=== PATIENT | male | born 1995 | race African-American/Black ===

== ENCOUNTER 2020-06-14 11:46 | Emergency (ER) | payer SELFPAY ==
--- NOTE | ~2020-06-14 | XR_ITS ---
EXAMINATION: XR hand RT min 3V DATE: 06/14/2020 13:14 INDICATION: Right hand swelling. Dog bite. TECHNIQUE: 3 views of right hand were obtained. COMPARISON: None. FINDINGS: Bone alignment is normal. No fracture. Joint spaces are well maintained. No radiopaque fore ign body. IMPRESSION: 1. No fracture or radiopaque foreign body. Reviewed, dictated and finalized at location A. OR SYSTEMS ANALYST
[2020-06-14 11:50] VITALS: BP 146/69; PULSE 105; RESP 18; TEMP 37.4; O2SAT 95
--- NOTE | 2020-06-14 11:59 | ED.GENADULT ---
HPI - General Adult General Chief complaint: Unspecified Stated complaint: Request Rabies and COVID Test Time Seen by Provider: 06/14/20 11:59 Source: patient Mode of arrival: ambulatory Limitations: no limitations History of Present Illness HPI narrative: Patient is a 24-year-old male who presents for evaluation of fever, dog bite to right hand, concern for Covid symptoms. Patient states on Sunday night he was bit in the right hand by his friend's dog who is fully up-to-date on his vaccinations. Patient reports mild pain and swelling at the site. He denies redness. Patient states he has had an intermittent fever however he cannot recall what the actual temperature is, states that he is concerned maybe he had Covid given his son father recently tested positive for and he has been in close proximity of him. Patient is currently denying any cough, shortness of breath, myalgias, loss of sense of taste or smell. No other exposures that he knows of. Patient is right-hand dominant. No decrease in strength. Related Data Allergies Allergy/AdvReac Type Severity Reaction Status Date / Time No Known Allergies Allergy Verified 06/14/20 11:55 Review of Systems Review of Systems: Narrative: CONSTITUTIONAL: Reports subjective fever ENT: Denies rhinorrhea, congestion, sore throat, or otalgia. CARDIOVASCULAR: Denies chest pain, palpitations, or edema. RESPIRATORY: Denies cough or dyspnea. GASTROINTESTINAL: Denies abdominal pain, nausea, vomiting, or diarrhea. GENITOURINARY: Denies dysuria or hematuria. SKIN: Denies rash or itching. MUSCULOSKELETAL: Denies back pain, reports right hand pain and swelling NEUROLOGIC: Denies headache, numbness, or weakness. [facility] Past Medical History Medical History (Updated 06/14/20 @ 12:19 by Whit Monahan MD) No pertinent past medical history Surgical History Surgical History (Updated 06/14/20 @ 12:17 by Whit Monahan MD) H/O wisdom tooth extraction Social History Social History (Updated 06/14/20 @ 12:18 by Whit Monahan MD) Smoking status: Never smoker Alcohol intake: never Substance use: never Living arrangements: with family Gender identity (if verbalized by the patient): Male Exam Narrative: Exam Narrative: GENERAL: Awake, alert, conversant HEAD: Normocephalic, atraumatic. EYES: PERRLA and EOMI. ENT: Nares clear, no rhinorrhea or epistaxis. Mucous membranes moist. NECK: Supple. CHEST: No respiratory distress, breathing even and non labored HEART: Regular rate, sinus rhythm ABDOMEN:Non distended, non tender EXTREMITIES: Normal range of motion. Mild edema to the dorsal aspect of the right hand. Intact sensation median, ulnar, radial nerve distribution. Radial pulse 2+. Full range of motion, document reviewer strength 5 out of 5, no limitation. Small abrasion to the third metacarpal. No fluctuance or erythema. SKIN: Warm, dry, no rash. NEURO:No focal deficits. Alert and oriented x3 Course Vital Signs Vital signs: Vital Signs Temperature 37.4 C 06/14/20 11:50 Pulse Rate 105 H 06/14/20 11:50 Respiratory Rate 18 06/14/20 11:50 Blood Pressure 146/69 H 06/14/20 11:50 Pulse Oximetry 95 06/14/20 11:50 Temperature 37.4 C 06/14/20 11:50 Pulse Rate 105 H 06/14/20 11:50 Respiratory Rate 18 06/14/20 11:50 Blood Pressure 146/69 H 06/14/20 11:50 Pulse Oximetry 95 06/14/20 11:50 Medical Decision Making MDM Narrative Medical decision making narrative: Patient presented wanting a rabies test, however patient is low risk for rabies, does not qualify for immunoglobin based on his exposure. Patient did get an x-ray which showed no retained foreign body, no fracture. Patient does not have any signs of severe infection, however given dog bite we will go ahead and prescribe oral antibiotics. Patient's tetanus was updated. He was swabbed for Covid based on close contacts otherwise does not have any respiratory type symptoms at this point. Patient w
[2020-06-14] MEDS: TETANUS,DIPHTHERIA,AC PERTUSSIS ADULT (0.5 ML) BOOSTRIX IM (12:22)
[2020-06-14] MEDS: ACETAMINOPHEN 500 MG TABLET 1000 MG (13:17)
[2020-06-14 13:33] VITALS: BP 133/84; PULSE 87; RESP 15; O2SAT 97
[2020-06-14 20:58] LABS: SARS-CoV-2 RNA PCR Negative
== END 2020-06-14 13:34 | disposition home or self-care (01) ==
PROVIDERS: Emergency Provider Emergency Medicine
DX: S61.451A Open bite of right hand, initial encounter (principal); R50.9 Fever, unspecified; Z20.828 Contact with and (suspected) exposure to other viral communicable diseases; Z23 Encounter for immunization; W54.0XXA Bitten by dog, initial encounter
CPT/HCPCS: 73130; 87635; 90471; 90715; 99283; A9270; C9803; U0003

== ENCOUNTER 2024-11-07 12:40 | Emergency (ER) | payer SELFPAY ==
--- NOTE | 2024-11-07 12:42 | ED_ITS ---
HPI - General Adult General Chief complaint: Chest Pain Stated complaint: right side chest pain/pressure Time Seen by Provider: 11/07/24 12:42 Source: patient Mode of arrival: ambulatory Limitations: no limitations History of Present Illness HPI narrative: Patient is a 29-year-old male presents with right chest wall pain for 2 days. Patient states he woke up and started having pain when he moved his right arm around. Denies any pain at rest. Denies any pain with palpation. Denies any radiating of pain or shortness of breath. Has taken 1 Tylenol that did not help with pain. Denies any heavy lifting or new exercises. Related Data Allergies Allergy/AdvReac Type Severity Reaction Status Date / Time No Known Allergies Allergy Verified 11/07/24 12:42 Review of Systems Review of Systems: All systems reviewed & are unremarkable except as noted in HPI and below Constitutional: Constitutional: Denies body ache(s), Denies chills, Denies fatigue, Denies fever(s), Denies headache(s), Denies malaise and Denies weakness Eyes: Eyes: Denies blurry vision, Denies irritation and Denies loss of vision ENT: Denies otalgia, Denies headache(s), Denies nasal discharge, Denies sinus pain and Denies sore throat Cardiovascular: Cardiovascular: Denies chest pain, Denies irregular heart rhythm and Denies dyspnea Respiratory: Respiratory: Denies dyspnea Gastrointestinal: Gastrointestinal: Denies abdominal pain, Denies melena, Denies hematochezia, Denies diarrhea, Denies nausea and Denies vomiting Musculoskeletal: Musculoskeletal: Denies back pain, Denies myalgias, Denies arthralgias and Reports muscle cramps Integumentary/Breasts: Skin/Breast: Denies pruritus and Denies rash Neurologic: Denies headache(s), Denies loss of vision and Denies weakness Psychiatric: Psychiatric: Reports no additional psychiatric complaints Endocrine: Endocrine: Denies fatigue PMFSH Past Medical History Medical History No pertinent past medical history Surgical History Surgical History H/O wisdom tooth extraction Social History Social History Smoking status: Never smoker Alcohol intake: never Substance use: never Living arrangements: with family Gender identity (if verbalized by the patient): Male Comments At time of signature, agree with nursing past medical, surgical, social and family history. There is no relevant family history pertinent to the presenting complaint. Exam Const: General: cooperative, healthy appearing, comfortable, no acute distress and well nourished Nutritional Appearance: well nourished Orientation/consciousness: patient oriented x3 Limitations: no limitations HENMT: Head: normal to inspection, normocephalic and atraumatic Ears: hearing grossly normal bilaterally and external ears normal Face/Nose/Sinus: Normal external nose present, normal facial exam and face symmetric Face and sinus: normal facial exam and face symmetric Mouth: Yes lip normal Eyes: General: appearance normal, both eyes and all related structures Alignment and Position: alignment normal and position normal Periorbital: periorbital findings normal Eyelids: eyelids normal Pupils: Equal, round and reactive pupils present EOM: EOMs intact bilaterally Neck: Neck: normal visual inspection, full ROM and supple Chest: Chest palpation & inspection: normal inspection of the chest and tend erness pectoral muscle on the right diffusely (with movement) Resp: Effort & Inspection: normal respiratory effort and able to speak in complete sentences Auscultation: clear to auscultation bilaterally Cardio: Rate: regular rate Rhythm: regular rhythm Heart sounds: S1 normal heart sound present and S2 normal heart sound present GI: Inspection: normal to inspection Skin: General skin exam: normal color and no rashes or lesions noted Neuro: General: patient oriented x3 and moves all extremities Cranial nerves: Yes Equal, round and reactive pupils present Speech: normal speech Gait exam (Neuro): Normal gait present Extrem: General: normal to inspection, full ROM and no edema Psych: Appearance: grossly normal and well kempt Mental Status: mental status grossly normal Speech and movement: Normal speech and movement present Affect: normal affect Attitude: cooperative Thought process: Normal thought process present Course Course Emergency Course: Patient is aware of diagnosis, understands and agrees to treatment plan. Antici patory guidance given. Patient agrees to follow-up as directed and is aware of reasons to seek care at the emergency department. Portions of this record may have been created with voice recognition software Level of Care: Express Care Visit Vital Signs Vital signs: Reviewed Medical Decision Making MDM Narrative Medical decision making narrative: Examined during for noncardiac related chest wall pain. Pain is reproducible with arm movement and resolved at rest. Consistent with muscle strain. Will treat with muscle relaxers and lidocaine patch. Educated patient on signs in symptoms requiring ER evaluation. Patient able to repeat back. Pt well hydrated appearing, in no respiratory distress, hemodynamically stable. Recommend supportive care. The patient is stable at time of discharge the clinical impression was discussed and the patient was given the opportunity to ask questions, which were addressed as completely as possible given the information available at present. Anticipatory guidance and return to care precautions were discussed and the importance of primary care follow-up was stressed and encouraged. The patient voiced understanding of the plan, indications to return, and the need for follow-up. Exam findings show no acute concerns or changes Patient is appropriate for outpatient treatment and follow-up. Differential Diagnosis Differential Diagnosis: Muscle strain, costochondritis, less likely ACS Medical Records Medical records reviewed: Yes I reviewed the external patient's medical records. Vital Signs Vital Signs: Reviewed ECG Data EKG #1: ECG completion date: 11/07/24 ECG completion time: 13:26 Prior ECG tracings: not available for review Interpretation: EKG: VR[68], DE int[174], QRS dur:[81], QT/QTc: [345/363], PRT axes: [36 65 53], Avg RR:[873], QTcB: [369], QTcF: [360], no ST elevation depression EKG Interpretation: normal rate and sinus rhythm Discharge Plan Discharge Clinical Impression: Chest wall muscle strain Qualifiers: Encounter type: initial encounter Qualified Code(s): S29.011A - Strain of muscle and tendon of front wall of thorax, initial encounter Patient Disposition: Home Condition: Stable Instructions: Chest Wall Pain (ED) Additional Instructions: Avoid activities that cause pain until the pain subsides. Ice to the area 20-30 minutes 4-6 times a day Use muscle relaxers as needed. They may make you drowsy so do not drive or operate machinery. Use lidocaine patch 12 hours on 12 hours off to affected area For pain, you may take: Tylenol 650-1000mg by mouth every 4-6 hours. Do not exceed 4000mg in 24 hours. Advil (Ibuprofen) 600 mg by mouth every 6 hours. Do not exceed 2400mg in 24 hours. 8 AM: Tylenol 11 AM: Ibuprofen 2 PM: Tylenol 5 PM: Ibuprofen 8 PM: Tylenol 11 PM: Ibuprofen 2 AM: Tylenol 5 AM: Ibuprofen Follow up with your primary care provider if the condition is not improving within 1 week. If the condition worsens with numbness, tingling, decrease sensation with weakness seek treatment in the emergency room immediately. Patient Language: Turkish Prescriptions: New baclofen 10 mg tablet 10 mg PO BID Qty: 10 0RF ibuprofen 600 mg tablet 600 mg PO TID PRN (Reason: pain) Qty: 30 0RF lidocaine 5 % adhesive patch,medicated 1 patch topical DAILY Qty: 15 0RF Rx Instructions: leave on most painful area for up to 12 hrs Follow-up/Referrals: Adams Lew MD [Physician] - 3 Days ([facility]) Time of Disposition: 13:27
[2024-11-07 12:51] VITALS: BP 127/79; PULSE 69; RESP 16; TEMP 36.9; O2SAT 99
--- NOTE | 2024-11-07 13:11 | ECG_ITS ---
Test Date: 2024-11-07 13:26:13 Measurements Intervals Karval Rate: 68 P: 36 NE: 174 QRS: 65 QRSD: 81 T: 53 QT: 345 QTc: 369 Interpretive Statements SINUS RHYTHM BASELINE ARTIFACT- I, III, AVR, AVL NORMAL ECG No previous ECG available for comparison Electronically Signed On 11-07-2024 14:06:33 CDT by Robin Green D.O.
== END 2024-11-07 13:32 | disposition home or self-care (01) ==
PROVIDERS: Emergency Provider Nurse Practitioner Family
DX: S29.011A Strain of muscle and tendon of front wall of thorax, initial encounter (principal); X58.XXXA Exposure to other specified factors, initial encounter
CPT/HCPCS: 93005; 99213; G0463